=== PATIENT | female | born 1990 | race Caucasian/White ===

== ENCOUNTER 2017-08-29 09:24 | Inpatient (IN) | payer SELFPAY ==
[2017-08-29] MEDS ORDERED: BICITRA PO ONE (10:28)
[2017-08-29] MEDS ORDERED: PEPCID IV ONE (10:28)
[2017-08-29] MEDS ORDERED: REGLAN IV ONE (10:28)
[2017-08-29] MEDS ORDERED: ANCEF/STERILE WATER 2 GM/20 ML 2 GM/20 ML SYRINGE IV NR (11:00)
[2017-08-29] MEDS ORDERED: PITOCin/NS 20 UNIT/1000ML DRIP 20 UNITS/1,000 ML BAG IV SCH ×2 (11:00→15:00)
[2017-08-29 11:35] LABS: Basophils # (Auto) 0.1 K/mm3 (0.0-0.1); Basophils % (Auto) 1.2 % (0.0-1.8); Eosinophils # (Auto) 0.1 K/mm3 (0.0-0.4); Eosinophils % (Auto) 1.1 % (0.0-4.3); Hematocrit 36.8 % (30.3-42.9); Hemoglobin 12.1 gm/dl (10.1-14.3); Lymphocytes # (Auto) 2.2 K/mm3 (1.2-5.4); Lymphocytes % (Auto) 20.6 % (13.4-35.0); Mean Corpuscular HGB Conc 33 % (30-34); Mean Corpuscular Hemoglobin 29 pg (28-32); Mean Corpuscular Volume 87 fl (79-97); Monocytes # (Auto) 0.7 K/mm3 (0.0-0.8); Monocytes % (Auto) 6.6 % (0.0-7.3); Platelet Count 251 K/mm3 (140-440); Red Blood Count 4.24 M/mm3 (3.65-5.03); Red Cell Distribution Width 17.9 % (13.2-15.2)
[2017-08-29] MEDS: LACTATED RINGERS 1,000 ML IV SCH ×2 (12:04→12:57)
--- NOTE | 2017-08-29 12:52 | History and Physical Report ---
History of Present Illness Date of examination: 08/29/17 Date of admission: 08/29/17 09:24 Chief complaint: Repeat History of present illness: 27-year-old at 39+6 wks presents for repeat , she is a [employer] patient. course has been unremarkable Past History Past Medical History: no pertinent history Past Surgical History: section APARTMENT COORDINATOR History: denies: chlamydia, gonorrhea, hepatitis B, hepatitis C, herpes, HIV , syphilis, trichomonas Social history: single, full code. denies: Lives alone, lives with family, smoking, IV drug use - Obstetrical History Expected Date of Delivery: 08/30/17 Actual Gestation: 39 Week(s) 6 Day(s) : 2 Para: 1 Medications and Allergies Allergies Allergy/AdvReac Type Severity Reaction Status Date / Time No Known Allergies Allergy Unverified 08/29/17 10:28 Home Medications Medication Instructions Recorded Confirmed Last Taken Type Pnv Plus Multivit Tab 1 caplet PO DAILY 08/29/17 08/29/17 1 Day Ago History ~08/28/17 1 Active Meds: Active Medications Cefazolin Sodium (Ancef/Sterile Water 2 Gm/20 Ml) 2 gm in 20 mls @ 80 mls/hr IV PREOP NR; Protocol Stop: 08/29/17 23:59 Lactated Ringer's (Lactated Ringers) 1,000 mls @ 2,250 mls/hr IV PREOP GEN Stop: 08/30/17 11:27 Last Admin: 08/29/17 12:04 Dose: 2,250 mls/hr Oxytocin/Sodium Chloride (Pitocin/Ns 20 Unit/1000ml Drip) 20 units in 1,000 mls @ 0 mls/hr IV TITR GEN Review of Systems Constitutional: no fever, no chills, no anorexia, no fatigue, no weakness, no malaise Eyes: no diplopia, no discharge, no photophobia, no loss of vision, no blind spots Cardiovascular: no chest pain, no orthopnea, no palpitations, no syncope, no lightheadedness, no shortness of breath, no dyspnea on exertion, no high blood pressure Respiratory: no cough, no cough with sputum, no shortness of breath, no dyspnea on exertion Gastrointestinal: no abdominal pain, no nausea, no vomiting, no heartburn, no indigestion Genitourinary: contractions, no vaginal bleeding, no vaginal discharge, no leakage of fluid - Vital Signs Vital signs: Vital Signs Pulse Pulse Ox 72 95 08/29/17 10:32 08/29/17 10:32 Temp Pulse Resp BP Pulse Ox 98.2 F 69 16 110/65 96 08/29/17 10:52 08/29/17 12:42 08/29/17 10:52 08/29/17 10:52 08/29/17 12:42 - Physical Exam Cardiovascular: Regular rate, Normal S1, Normal S2 Lungs: Positive: Clear to auscultation, Normal air movement Abdomen: Positive: normal appearance, soft. Negative: distention, tenderness, guarding, rigidity Genitourinary (Female): Positive: normal external genitalia Uterus: Positive: enlarged (EFW ~ 3600) Adnexa: both: normal Extremities: Positive: normal - Obstetrical FHR: category 1 Results Result Diagrams: 08/29/17 11:00 Abnormal lab results 08/29/17 Range/Units 11:00 RDW 17.9 H (13.2-15.2) % Seg Neutrophils % 70.5 H (40.0-70.0) % All other labs normal. Assessment and Plan A: 27-year-old at 39+6 prior desires repeat -Cat 1 tracing P: -Routine labs -Patient has been consented -Proceed to the OR once available - Patient Problems (1) 39 weeks gestation of Current Visit: Yes Status: Acute (2) Previous delivery affecting Current Visit: Yes Status: Acute
[2017-08-29] MEDS ORDERED: NARCAN 0.4 MG/1 ML IV PRN ×2 (13:01→14:31)
[2017-08-29] MEDS ORDERED: ZOFRAN IV PRN (13:01)
[2017-08-29] MEDS ORDERED: BENADRYL IV PRN (13:01)
[2017-08-29] MEDS ORDERED: PHENERGAN PO PRN (13:01)
[2017-08-29] MEDS ORDERED: PHENERGAN PR PRN (13:01)
[2017-08-29] MEDS ORDERED: DILAUDID IV PRN (13:01)
--- NOTE | 2017-08-29 13:01 | Anesthesia Consultation ---
Anesthesia Consult and Med Hx Date of service: 08/29/17 - Airway Anesthetic Teeth Evaluation: Good ROM Head & Neck: Adequate Mental/Hyoid Distance: Adequate Mallampati Class: Class II Intubation Access Assessment: Probably Good - Pre-Operative Health Status ASA Pre-Surgery Classification: ASA2 - Pulmonary Hx Asthma: No COPD: No Hx Pneumonia: No - Cardiovascular System Hx Hypertension: No - Central Nervous System Hx Seizures: No Hx Psychiatric Problems: No - Endocrine Hx Renal Disease: No Hx End Stage Renal Disease: No Hx Hypothyroidism: No Hx Hyperthyroidism: No - Hematic Hx Anemia: No Hx Sickle Cell Disease: No - Other Systems Hx Alcohol Use: No
--- NOTE | 2017-08-29 13:01 | Anesthesia Day of Surgery ---
Anesthesia Day of Surgery - Day of Surgery Patient Examined: Yes Patient H&P Reviewed: Yes Patient is NPO: Yes
[2017-08-29] MEDS ORDERED: NEO SYNEPHRINE/NS Syringe(OR USE) IV ONE (13:55)
[2017-08-29] MEDS ORDERED: SODIUM CHLORIDE FLUSH SYRINGE 10 ML IV NR (14:00)
[2017-08-29] MEDS ORDERED: MORPHINE ONE (14:07)
[2017-08-29] MEDS ORDERED: NACL 0.9% IR ONE (14:15)
[2017-08-29] MEDS ORDERED: WATER FOR IRRIG STERILE IR ONE (14:15)
[2017-08-29] MEDS ORDERED: ANUCORT-HC PR PRN (14:31)
[2017-08-29] MEDS ORDERED: TUCKS PAD TP PRN (14:31)
[2017-08-29] MEDS ORDERED: MILK OF MAGNESIA PO PRN (14:31)
[2017-08-29] MEDS ORDERED: SENOKOT PO PRN (14:31)
[2017-08-29] MEDS ORDERED: LANSINOH TP PRN (14:31)
[2017-08-29] MEDS ORDERED: MYLICON PO PRN (14:31)
[2017-08-29] MEDS ORDERED: TYLENOL PO PRN (14:31)
--- NOTE | 2017-08-29 14:39 | Operative Report ---
Operative Report Operative Report: DATE: 08/29/2017 PREOPERATIVE DIAGNOSIS: 27-year-old at 39+6 weeks, prior desires repeat POSTOP DIAGNOSIS: As above NAME OF PROCEDURE: Repeat low transverse section SURGEON: CHINA SPENCER MD FILTERING MACHINE TENDER: Kamilla ANESTHESIA: Combined spinal epidural EBL: 700 mL PATHOLOGY SPECIMEN: None URINE OUTPUT: 100 mL FINDINGS: Female infant in cephalic presentation, time of 1355, weight 8 lbs. 10 oz. or 3640 grams, Apgars 8 and 9, normal uterus tubes and ovaries bilaterally, minimal adhesions DESCRIPTION OF PROCEDURE: She was taken to the operating room where she was prepped and draped in a sterile fashion, she was placed in the dorsal supine position. Pfannenstiel incision was performed through her prior incisional scar which was carried through to underlying rectus fascia which was scored in the midline. The fascial incision was extended laterally with use of Ching scissors, the anterior leaf was then grasped with Kochers forceps elevated dissected sharply and bluntly off the underlying rectus in a similar fashion inferior leaf was grasped elevated dissected sharply and bluntly off the underlying rectus. The rectus was in the midline, good visualization of bladder was noted. A bladder blade was placed in the patient's pelvic cavity ; bladder flap was not created. A hysterotomy incision was then performed in the lower segment with clear amniotic fluid noted, hysterotomy incision was extended laterally with the use of fingers manually. Infant in cephalic presentation was delivered in the usual manner; cord was clamped and cut infant was handed over to waiting nursery staff. The placenta was then delivered manually intact, the uterus was exteriorized cleared of all clots and debris. Hysterotomy incision was then closed in a running locked fashion with 0 Vicryl on a CTX; using the same suture was imbricate the initial layer. Interrupted [id number] stitches were used to obtain hemostasis. Uterus was then returned to the patient's pelvic cavity; peritoneal edges were grasped with hemostats and Doreen's elevated copious irrigation was used to clear the gutters of all clots and debris. Tercel hemostatic agent was then applied to the hysterotomy incision as a means to prevent future bleeding. The peritoneal layer was then closed in a running fashion with 3-0 Vicryl and the rectus was reapproximated with a single [id number] stitch. The fascia was closed in a running fashion with 0 Vicryl and tied in the opposite side. The subcutaneous layer was irrigated and then reapproximated with interrupted figure -of-eight stitches. The skin was closed in a subcuticular manner with 4-0 Vicryl. She tolerated the procedure well lap and instrument counts were correct 2 she did receive 2 g of Ancef prior to incision she is transferred to PACU in stable condition thank you.
[2017-08-29] MEDS ORDERED: SODIUM CHLORIDE FLUSH SYRINGE 10 ML IV SCH (15:00)
[2017-08-29] MEDS: TORADOL IV PRN ×2 (15:42→23:08)
[2017-08-29] MEDS: D5LR 1,000 ML IV SCH (23:01)
[2017-08-30 02:59] LABS: Hematocrit 29.9 % (30.3-42.9); Hemoglobin 9.9 gm/dl (10.1-14.3)
[2017-08-30] MEDS: TORADOL IV PRN (05:47)
[2017-08-30] MEDS ORDERED: BOOSTRIX IM ONE (06:00)
[2017-08-30] MEDS: D5LR 1,000 ML IV SCH (07:00)
--- NOTE | 2017-08-30 10:14 | Progress Note ---
Assessment and Plan A: POD #1 Asymptomatic Anemia P: Follow Routine Postop Orders FeSO4 325mg PO BID Encourage increased Ambulation Subjective - Subjective Date of service: 08/30/17 Patient reports: appetite normal, voiding normally, pain well controlled, ambulating normally [place]: doing well Objective - Vital Signs Latest vital signs: Vital Signs Temp Pulse Resp BP BP Pulse Ox 08/30/17 08:05 97.8 F 61 16 96/46 08/30/17 04:30 98.2 F 64 18 98/53 08/30/17 00:00 98.0 F 66 18 97/60 08/29/17 20:15 98.2 F 58 L 18 102/50 08/29/17 16:00 97.6 F 60 18 111/46 98 08/29/17 15:42 18 08/29/17 15:35 51 L 11 L 103/52 98 08/29/17 15:31 97.8 F 08/29/17 15:30 50 L 15 110/58 97 08/29/17 15:25 50 L 14 106/56 97 08/29/17 15:20 51 L 11 L 103/56 97 08/29/17 15:15 54 L 7 L 108/56 97 08/29/17 15:10 49 L 13 105/58 97 08/29/17 15:05 51 L 15 107/58 97 08/29/17 15:00 50 L 15 105/54 97 08/29/17 14:55 50 L 14 104/61 98 08/29/17 14:49 52 L 14 101/52 97 08/29/17 14:43 52 L 15 102/53 98 08/29/17 14:37 96 08/29/17 14:36 59 L 16 104/92 97 08/29/17 12:42 69 96 08/29/17 12:37 68 95 08/29/17 12:33 76 94 08/29/17 12:32 72 97 08/29/17 12:27 67 95 08/29/17 12:22 67 96 08/29/17 12:17 76 93 08/29/17 12:12 75 97 08/29/17 12:07 77 97 08/29/17 12:02 64 96 08/29/17 11:57 69 96 08/29/17 11:52 70 96 08/29/17 11:47 68 97 08/29/17 11:42 64 95 08/29/17 11:37 71 95 08/29/17 11:32 71 97 08/29/17 11:27 73 97 08/29/17 11:22 79 96 08/29/17 11:17 62 96 08/29/17 11:12 66 96 08/29/17 11:07 77 96 08/29/17 11:02 67 95 08/29/17 10:57 67 96 08/29/17 10:56 65 94 08/29/17 10:52 98.2 F 75 16 110/65 94 08/29/17 10:51 67 94 08/29/17 10:47 67 95 08/29/17 10:42 72 94 08/29/17 10:38 71 94 08/29/17 10:37 75 96 08/29/17 10:33 81 94 08/29/17 10:32 72 95 Intake and Output 08/29/17 08/30/17 08/30/17 22:59 06:59 14:59 Intake Total 540 240 997.917 Output Total 300 600 Balance 240 -360 997.917 Intake: IV 300 997.917 D5lr 1,000 ml @ 125 mls/ 997.917 hr IV DIRECT GEN Rx#: [id number] Oral 240 240 Output: Urine 300 600 Indwelling Catheter 200 600 Other: Total, Intake Amount 240 120 Total, Output Amount 200 600 - Exam Breasts: Present: normal Cardiovascular: Present: Regular rate Lungs: Present: Clear to auscultation, Normal air movement Abdomen: Present: normal appearance, soft, normal bowel sounds Uterus: Present: normal, firm, fundal height below umbilicus Extremities: Present: normal Incision: Present: normal, dry, dressed - Labs Labs: Abnormal lab results 08/29/17 08/30/17 Range/Units 11:00 02:42 Hgb 9.9 L (10.1-14.3) gm/dl Hct 29.9 L D (30.3-42.9) % RDW 17.9 H (13.2-15.2) % Seg Neutrophils % 70.5 H (40.0-70.0) %
[2017-08-30] MEDS: PERCOCET 5/325 PO PRN ×2 (10:39→18:32)
[2017-08-30] MEDS: FEOSOL PO SCH (10:39)
[2017-08-30] MEDS: MOTRIN PO PRN ×2 (10:41→16:49)
[2017-08-30] MEDS ORDERED: M-M-R II VACCINE SUB-Q ONE (14:33)
[2017-08-31] MEDS: PERCOCET 5/325 PO PRN ×3 (02:04→15:22)
[2017-08-31] MEDS: FEOSOL PO SCH ×2 (03:23→09:16)
[2017-08-31] MEDS: MOTRIN PO PRN ×2 (09:16→15:21)
[2017-08-31 10:24] VITALS: BP 104/68
[2017-08-31] MEDS ORDERED: DEPO-PROVERA (CONTRACEPTION) IM NR (11:01)
--- NOTE | 2017-08-31 11:03 | Progress Note ---
Assessment and Plan A: POD #2 Asymptomatic Anemia P: Follow Routine Postop Orders Continue FeSO4 325mg PO BID Depo Provera prior to discharge D/C home today RTO in One Week Subjective - Subjective Date of service: 08/31/17 Patient reports: appetite normal, voiding normally, pain well controlled, flatus , ambulating normally [place]: doing well, bottle feeding (and ) Objective - Vital Signs Latest vital signs: Vital Signs Temp Pulse Resp BP 08/31/17 08:50 98.4 F 79 18 104/68 08/31/17 00:00 98.9 F 76 18 98/63 08/30/17 18:32 18 08/30/17 16:00 98.1 F 69 103/59 08/30/17 13:43 98.9 F 78 18 99/69 Intake and Output 08/30/17 08/31/17 08/31/17 22:59 06:59 14:59 Intake Total 240 Output Total 300 Balance -300 240 Intake: Oral 240 Output: Urine 300 Indwelling Catheter 300 Other: Total, Intake Amount 240 Total, Output Amount 300 # Voids Indwelling Catheter 1 - Exam Breasts: Present: normal Cardiovascular: Present: Regular rate Lungs: Present: Clear to auscultation, Normal air movement Abdomen: Present: normal appearance, soft, normal bowel sounds Uterus: Present: normal, firm, fundal height below umbilicus Extremities: Present: normal Incision: Present: normal, dry, intact
--- NOTE | 2017-08-31 11:04 | Discharge Summary ---
Providers - Providers Date of Admission: 08/29/17 09:24 Date of discharge: 08/31/17 Attending physician: KIANA PASCUAL MD Primary care physician: KIANA PASCUAL MD Hospitalization Reason for admission: section Delivery: Procedure: repeat low transverse Episiotomy: none Laceration: none Incision: normal, dry, intact complications: none Discharge diagnosis: IUP at term delivered [place] baby: female Condition at discharge: Good Disposition: DC-01 TO HOME OR SELFCARE Plan - Discharge Medications Prescriptions: Ibuprofen [Motrin 600 MG tab] 600 mg PO Q8H PRN #30 tablet PRN Reason: Pain Multivitamin with Iron [Multivitamins with Iron] 1 each PO DAILY #30 tablet oxyCODONE /ACETAMINOPHEN [Percocet 5/325] 1 tab PO Q6HR PRN #30 tablet PRN Reason: Pain - Provider Discharge Summary Activity: routine, no sex for 6 weeks, no heavy lifting 4 weeks, no strenuous exercise Diet: routine Instructions: routine Additional instructions: [] Smoking cessation referral if applicable(refer to patient education folder for contact #) [] Refer to [facility]'s [facility] Booklet Call your doctor immediately for: * Fever > 100.5 * Heavy vaginal bleeding ( >1 pad per hour) * Severe persistent headache * Shortness of breath * Reddened, hot, painful area to leg or breast * Drainage or odor from incision. * Keep incision clean and dry at all times and follow doctor's instructions regarding bathing/showering - Follow up plan Follow up: KIANA PASCUAL MD [Primary Care Provider] - 7 Days
== END 2017-08-31 16:15 | disposition home or self-care (01) | DRG 766 ==
LOC: APU 09:24 → OB 16:01
PROVIDERS: ADMIT Obstetrics & Gynecology; ATTEND Obstetrics & Gynecology
PROC: 10D00Z1 Extraction of Products of Conception, Low, Open Approach (ICD-10-PCS; principal; 2017-08-29)
DX: O34.211 Maternal care for low transverse scar from previous cesarean delivery (principal); Z3A.39 39 weeks gestation of pregnancy; Z37.0 Single live birth; O90.81 Anemia of the puerperium; D64.9 Anemia, unspecified
CPT/HCPCS: 36415; 85014; 85018; 85025; 86592; 86850; 86900; 86901; A6250; C9250; J0690; J1170; J1885; J2270; J2370; J2590; J2765; J7120; J7121